=== PATIENT | female | born 1975 ===

== ENCOUNTER 2025-03-22 07:00 | Day surgery (SDC) | payer OTHER ==
[2025-03-22] MEDS ORDERED: GENTAMICIN SULFATE 40 MG/ML VIAL ONE (10:16)
[2025-03-22] MEDS ORDERED: POVIDONE-IODINE 118 ML BOTT TOP ONE (10:53)
[2025-03-22] MEDS ORDERED: CHLORHEXIDINE GLUCONATE 120 ML BOTTLE TOP ONE (10:53)
[2025-03-22] MEDS ORDERED: IBU600 MG PO (11:59)
[2025-03-22] MEDS ORDERED: DOXYCYCLINE HY100 M2 PO (11:59)
== END 2025-03-22 16:45 | disposition home or self-care (01) ==
LOC: CIR.AMB 07:00
PROVIDERS: ATTEND Obstetrics & Gynecology
DX: D25.0 Submucous leiomyoma of uterus (principal); N84.0 Polyp of corpus uteri; N95.0 Postmenopausal bleeding; N80.03 Adenomyosis of the uterus; N72 Inflammatory disease of cervix uteri